=== PATIENT | female | born 1970 | race Caucasian/White ===

== ENCOUNTER → 2016-10-08 | Outpatient (CLI) | payer BC ==
[~2016-10-08] MED LIST: AMIT10TA6 PO; BUPR-79 PO; BUPR-83 PO; BUPR100T8 PO; BUPR200T2 PO; DICL50TA3 PO; FLUV1CAP; FLUV50TA2 PO; FRCT/ PO; LORA-741 PO; MULTTAB58 PO; RIBO100T2 PO; RIZA10TA18 PO; TOPI50TA24 PO; [UNRECOGNIZED DRUG - CODE]
[2016-10-08 12:36] LABS: ALT/SGPT 40 U/L (12-78); BLOOD UREA NITROGEN 15 mg/dl (7-18); BUN/CREATININE RATIO 13.5 (10-20); CALCIUM 8.9 mg/dl (8.5-10.1); CARBON DIOXIDE 24 mmol/L (21-32); CHLORIDE 110 mmol/L (98-107); CHOLESTEROL 193 mg/dl (0-200); GLUCOSE 94 mg/dl (70-99); POTASSIUM 4.6 mmol/L (3.5-5.1); SODIUM 142 mmol/L (136-145); TRIGLYCERIDES 140 mg/dl (0-150); VERY LOW DENSITY LIPOPROT CALC 28 mg/dl
[2016-10-08 12:46] LABS: ALB/GLOB RATIO 0.9 (0.9-2); ALKALINE PHOSPHATASE 69 U/L (45-117); AST/SGOT 19 U/L (15-37); CHOLESTEROL/HDL RATIO 4.3; HDL CHOLESTEROL 45 mg/dl; LDL CHOLESTEROL CALCULATED 120 mg/dl
== END | disposition home or self-care (01) ==
LOC: C.LABPVFM 08:14
PROVIDERS: ATTEND Family Medicine
DX: Z13.220 Encounter for screening for lipoid disorders (principal); Z13.29 Encounter for screening for other suspected endocrine disorder

== ENCOUNTER → 2016-11-05 | Outpatient (CLI) | payer BC ==
[~2016-11-05] VITALS: Ht 163.8 cm; Wt 95.7 kg
[~2016-11-05] MED LIST changes: +NORE-107; -[UNRECOGNIZED DRUG - CODE]
[2016-11-05 15:43] VITALS: BP 113/79; PULSE 109; Ht 163.8 cm; Wt 95.7 kg
== END | disposition home or self-care (01) ==
LOC: C.NEUR 15:27
PROVIDERS: ATTEND Internal Medicine Pulmonary Disease
DX: G47.30 Sleep apnea, unspecified (principal)

== ENCOUNTER → 2017-01-01 | Outpatient (CLI) | payer BC ==
[2017-01-01 17:28] LABS: BASO % 0.6 %; BASO ABS # 0.04 K/uL (0-0.2); COMPLETE YES; EOS % 2.7 %; HEMATOCRIT 43.3 % (37-47); IG% 0.3 %; LYMPH % 39.4 %; LYMPH ABS # 2.63 K/uL (1.2-3.4); MEAN CELL VOLUME 93.5 fL (80-100); MEAN CORPUSCULAR HEMOGLOBIN 29.8 pg (25-34); MEAN CORPUSCULAR HGB CONC 31.9 g/dl (32-36); MEAN PLATELET VOLUME 10.3 fL (7.4-10.4); MONO % 6.9 %; NEUT % 50.1 %; PLATELET COUNT 265 K/uL (130-400); RED BLOOD COUNT 4.63 M/uL (4.2-5.4); WHITE BLOOD COUNT 6.68 K/uL (4.8-10.8)
[2017-01-01 17:44] LABS: ALKALINE PHOSPHATASE 90 U/L (45-117); ALT/SGPT 34 U/L (12-78); AMYLASE 53 U/L (25-115); AST/SGOT 18 U/L (15-37); BLOOD UREA NITROGEN 13 mg/dl (7-18); BUN/CREATININE RATIO 11.8 (10-20); CALCIUM 8.5 mg/dl (8.5-10.1); CARBON DIOXIDE 26 mmol/L (21-32); CHLORIDE 109 mmol/L (98-107); GLUCOSE 129 mg/dl (70-99); POTASSIUM 3.8 mmol/L (3.5-5.1); SODIUM 143 mmol/L (136-145)
[2017-01-01 17:45] LABS: ALB/GLOB RATIO 0.9 (0.9-2)
== END | disposition home or self-care (01) ==
LOC: C.LABPVFM 13:31
PROVIDERS: ATTEND Nurse Practitioner Family
DX: R10.11 Right upper quadrant pain (principal)

== ENCOUNTER → 2017-01-04 | Outpatient (CLI) | payer BC ==
--- NOTE | 2017-01-04 08:58 | DIAGNOSTIC IMAGING REPORT ---
KUB CLINICAL HISTORY: Right upper quadrant abdominal pain COMPARISON STUDY: No previous studies for comparison. FINDINGS: There are surgical clips within the right upper quadrant consistent with a prior cholecystectomy. There is no pathologic bowel dilatation. There are no calcification suspicious for renal calculi. There are multiple nonspecific pelvic basin calcifications, likely representing phleboliths. IMPRESSION: No evidence of pathologic bowel dilatation. Electronically signed by: David Gibson M.D. 01/04/2017 8:55 AM Dictated Date/Time: 01/04/2017 8:54 AM
== END | disposition home or self-care (01) ==
LOC: C.RADPV 08:27
PROVIDERS: ATTEND Nurse Practitioner Family
DX: R10.811 Right upper quadrant abdominal tenderness (principal)

== ENCOUNTER 2017-01-06 09:07 | Emergency (ER) | payer BC ==
[~2017-01-06] VITALS: Ht 162.6 cm; Wt 95.8 kg
[~2017-01-06 09:07] MED LIST changes: -AMIT10TA6 PO; -BUPR-79 PO; -BUPR100T8 PO; -BUPR200T2 PO; -DICL50TA3 PO; -FLUV50TA2 PO; -RIBO100T2 PO
[2017-01-06 09:23] VITALS: TEMP 37; Ht 162.6 cm; Wt 95.8 kg
[2017-01-06] MEDS ORDERED: KETOROLAC TROMETHAMINE 30 MG/ML VIAL IV STA (09:49)
[2017-01-06] MEDS ORDERED: ONDANSETRON INJ 2 MG/ML 2 ML VIAL IV STA (09:49)
[2017-01-06 10:21] LABS: URINE APPEARANCE CLEAR (CLEAR); URINE BILIRUBIN NEG (NEG); URINE COLOR DK YELLOW; URINE EPITHELIAL CELL AUTO >30 /lpf (0-5); URINE NITRITE NEG (NEG); URINE PH 7.5 (4.5-7.5); URINE SPECIFIC GRAVITY 1.014 (1.000-1.030); UROBILINOGEN NEG (NEG)
[2017-01-06 10:24] LABS: BASO % 0.7 %; BASO ABS # 0.04 K/uL (0-0.2); COMPLETE YES; EOS % 3.4 %; HEMATOCRIT 41.6 % (37-47); IG% 0.2 %; LYMPH % 32.7 %; LYMPH ABS # 1.81 K/uL (1.2-3.4); MEAN CELL VOLUME 92.4 fL (80-100); MEAN CORPUSCULAR HEMOGLOBIN 30.2 pg (25-34); MEAN CORPUSCULAR HGB CONC 32.7 g/dl (32-36); MEAN PLATELET VOLUME 9.9 fL (7.4-10.4); MONO % 8.1 %; NEUT % 54.9 %; PLATELET COUNT 225 K/uL (130-400); WHITE BLOOD COUNT 5.53 K/uL (4.8-10.8)
[2017-01-06 10:25] LABS: MANUAL MICROSCOPIC REQUIRED? NO; REVIEW REQ? NO
[2017-01-06 10:42] LABS: ALT/SGPT 33 U/L (12-78); AST/SGOT 14 U/L (15-37); BLOOD UREA NITROGEN 13 mg/dl (7-18); BUN/CREATININE RATIO 13.1 (10-20); CALCIUM 8.6 mg/dl (8.5-10.1); CARBON DIOXIDE 24 mmol/L (21-32); CHLORIDE 110 mmol/L (98-107); GLUCOSE 124 mg/dl (70-99); POTASSIUM 3.9 mmol/L (3.5-5.1); SODIUM 141 mmol/L (136-145)
[2017-01-06 10:47] LABS: ALB/GLOB RATIO 0.9 (0.9-2); ALKALINE PHOSPHATASE 78 U/L (45-117)
[2017-01-06] MEDS ORDERED: DICL50TA3 PO (11:16)
[2017-01-06] MEDS ORDERED: AMIT10TA6 PO (11:16)
[2017-01-06] MEDS ORDERED: RIBO100T2 PO (11:16)
[2017-01-06] MEDS ORDERED: FLUV50TA2 PO (11:16)
[2017-01-06] MEDS ORDERED: BUPR100T8 PO (11:16)
[2017-01-06] MEDS ORDERED: BUPR-79 PO (11:16)
[2017-01-06] MEDS ORDERED: BUPR200T2 PO (11:16)
--- NOTE | 2017-01-06 11:20 | DIAGNOSTIC IMAGING REPORT ---
PA CHEST WITH ABDOMINAL SERIES CLINICAL HISTORY: Right upper quadrant abdominal pain. FINDINGS: A PA chest radiograph is compared to study dated 10/08/2015. The cardiomediastinal silhouette is unremarkable. There are low lung volumes. The lungs and pleural spaces are clear. No pneumothorax is seen. The bony thorax is grossly intact. Supine and erect abdominal radiographs are compared to study dated 01/04/2017. There is a nonobstructed abdominal bowel gas pattern. Moderate colonic fecal retention is observed. No evidence of intraperitoneal free air is seen. Cholecystectomy clips are identified in the right upper quadrant. There are no abnormal abdominal calcifications. Numerous phleboliths are observed in the pelvis. The lumbosacral spine and bony pelvis appear intact. IMPRESSION: 1. Low lung volumes with no active disease in the chest. 2. Moderate constipation. Electronically signed by: Josh Wilkerson M.D. 01/06/2017 11:18 AM Dictated Date/Time: 01/06/2017 11:16 AM
[2017-01-06] MEDS ORDERED: OPTIRAY 320 IV PRN (11:45)
--- NOTE | 2017-01-06 12:58 | DIAGNOSTIC IMAGING REPORT ---
CT OF THE ABDOMEN AND PELVIS WITH CONTRAST CLINICAL HISTORY: Right upper quadrant abdominal pain. COMPARISON STUDY: Abdominal series performed earlier today. TECHNIQUE: Following IV administration of 93 mL of Optiray-320, axial images of the abdomen and pelvis were obtained from the lung bases to the proximal femurs. Images were reviewed in the axial, sagittal, and coronal planes. IV contrast was administered without complication. CT DOSE: 1039.46 mGycm FINDINGS: The liver, spleen, adrenal glands, kidneys and pancreas are unremarkable. There is no biliary ductal dilatation status post cholecystectomy. There is no peripancreatic infiltration. There is no hydronephrosis. Minimal hyperdense material within the bilateral collecting systems likely reflects excreted contrast. The caliber and wall thickness of small and large bowel are normal. The appendix is normal. There is no lymphadenopathy or ascites. No suspicious skeletal lesions are identified. IMPRESSION: No acute process within the abdomen or pelvis. Electronically signed by: Aarm Gasca M.D. 01/06/2017 12:55 PM Dictated Date/Time: 01/06/2017 12:48 PM
--- NOTE | 2017-01-06 13:27 | EMERGENCY ROOM VISIT NOTE ---
History First contact with patient: 09:25 Chief Complaint: BACK PAIN Stated Complaint: PAIN IN R SIDE RADIATES TO BACK AND DOWN History of Present Illness Patient is a 46-year-old white female who presents to the emergency department for right upper quadrant pain 3 weeks. The pain has been intermittent, but was tolerable and initially. She states that when the pain started she had had a cold and initially thought that it was muscular. It worsened about 5 days ago which prompted her to go to her PCPs office. She had a KUB x-ray, CBC, CMP and a stool for H. pylori which were all negative. The pain is in the right upper quadrant up underneath her right rib cage. She states that over the last 5 days the pain has worsened, become more constant and wraps around to her back into her right lower quadrant. Today the pain was very severe and made her nauseous. She was supposed to have a follow-up later this morning, but could not wait due to the increased pain. She reports some nausea today, but has not been nauseous previously and there has been no vomiting. She describes a "hollow, sick feeling" in her stomach. She has been eating normally. She denies any diarrhea or stool changes, no melena or hematochezia. She denies any dysuria, frequency or urgency or hematuria. She denies a chest pain or palpitations, but does note that it hurts worse when she takes a deep breath or when she coughs. She has not been coughing or bringing up any mucus or sputum and she does not feel short of breath. She has not had any fevers. She has not taken any medications for her symptoms. She does state that her pain now feel similar to when she had her gallbladder issues in the mid 90s. She presently rates her discomfort a 5/10. She is on an oral contraceptive and has a history of PCOS. She notes some right lower extremity swelling in the morning , but denies any pain. No other DVT or PE risk factors. Review of Systems Review of systems as per HPI. All other systems reviewed were negative. 10 systems reviewed. Past Medical/Surgical History Medical Problems: (1) Esophageal Reflux (2) Migraine (3) Migraine (4) Mixed Hyperlipidemia Surgical Problems: (1) Hx of cholecystectomy (2) Tubal Ligation Status Electronic medical records are reviewed and summarized as above/below. See Problem List. Social History Smoking Status: Never Smoker Marital Status: Housing Status: lives with significant other Occupation Status: employed Current/Historical Medications Scheduled Amitriptyline Hcl (Elavil), 20 MG PO HS Bupropion (Wellbutrin Sr), 100 MG PO QAM Bupropion (Wellbutrin Sr), 150 MG PO QAM Bupropion Hcl (Wellbutrin Sr), 200 MG PO QPM Fluvoxamine Maleate (Luvox), 50 MG PO HS Multiple Vitamin (Multivitamin), 1 TAB PO DAILY Norethin Acet & Estrad-Fe (Microgestin Fe), 1 TAB DAILY Riboflavin (B2), 400 MG PO DAILY Topiramate (Topamax), 50 MG PO BID Scheduled PRN Lorazepam (Ativan), 0.5 MG PO Q6H PRN Miscellaneous Medications Diclofenac (Voltaren), 50 MG PO Allergies Coded Allergies: Propranolol (Unverified Allergy, Severe, "I FELT HIGH", 01/06/17) Sulfa Antibiotics (Unverified Allergy, Severe, ., 01/06/17) Neomycin (Unverified Allergy, Unknown, 03/01/13) Physical Exam Vital Signs Date Time Temp Pulse Resp B/P Pulse Ox O2 Delivery O2 Flow Rate FiO2 01/06/17 13:51 93 16 134/84 97 01/06/17 13:05 92 16 98 Room Air 01/06/17 11:26 97 16 103/79 97 Room Air 01/06/17 10:28 95 01/06/17 09:23 37.0 110 18 132/97 97 Room Air Physical Exam CONSTITUTIONAL: Patient is a well-appearing 46-year-old white female who is awake and alert and in mild distress due to her discomfort. EYES: Pupils equal, round, reactive to light and accommodation. EOMs intact without nystagmus. Sclera are anicteric. ENT: Tympanic membranes intact, with normal landmarks. External canals are clear. Oral and nasopharynx are clear. Mucous membranes are moist, no lesions , tongue and gums appear normal. NECK: No bruits auscultated. Supple without lymphadenopathy. No thyromegaly. No meningeal signs. Full active range of motion without discomfort. CARDIOVASCULAR: Regular rate and rhythm, with normal S1 and S2, no murmur or gallop or rub is heard. No carotid bruits auscultated. No JVD. Peripheral pulses easy to palpable. RESPIRATORY: Breath sounds equal and clear to auscultation without wheezes, rales, or rhonchi heard. Full and equal chest expansion without accessory muscle use or retractions. GI: Bowel sounds are present. Well-healed surgical scars are noted. Abdomen is soft, nondistended, tender in the right upper quadrant just off of the costal margin. She does also have some discomfort over the inferior rib cage as well. No organomegaly. No pulsatile masses. No guarding or rebound. MUSCULOSKELETAL: Full range of motion of extremities x 4 with good strength. No cyanosis, edema, joint tenderness or swelling. No deformity. INTEGUMENTARY: No lesions or rash, normal skin turgor. NEUROLOGICAL: Alert, oriented, and cooperative. Cranial nerves, sensation and strength grossly intact. Pupils round, equal, and react to light, EOMs are full. LYMPH: No lymphadenopathy. Medical Decision & Procedures ER Provider Diagnostic Interpretation: CT OF THE ABDOMEN AND PELVIS WITH CONTRAST CLINICAL HISTORY: Right upper quadrant abdominal pain. COMPARISON STUDY: Abdominal series performed earlier today. TECHNIQUE: Following IV administration of 93 mL of Optiray-320, axial images of the abdomen and pelvis were obtained from the lung bases to the proximal femurs. Images were reviewed in the axial, sagittal, and coronal planes. IV contrast was administered without complication. CT DOSE: 1039.46 mGycm FINDINGS: The liver, spleen, adrenal glands, kidneys and pancreas are unremarkable. There is no biliary ductal dilatation status post cholecystectomy. There is no peripancreatic infiltration. There is no hydronephrosis. Minimal hyperdense material within the bilateral collecting systems likely reflects excreted contrast. The caliber and wall thickness of small and large bowel are normal. The appendix is normal. There is no lymphadenopathy or ascites. No suspicious skeletal lesions are identified. IMPRESSION: No acute process within the abdomen or pelvis. Laboratory Results 01/06/17 10:02 Red Blood Count 4.50, Mean Corpuscular Volume 92.4, Mean Corpuscular Hemoglobin 30.2, Mean Corpuscular Hemoglobin Concent 32.7, Mean Platelet Volume 9.9, Neutrophils (%) (Auto) 54.9, Lymphocytes (%) (Auto) 32.7, Monocytes (%) (Auto) 8.1, Eosinophils (%) (Auto) 3.4, Basophils (%) (Auto) 0.7, Neutrophils # (Auto) 3.03, Lymphocytes # (Auto) 1.81, Monocytes # (Auto) 0.45, Eosinophils # (Auto) 0.19, Basophils # (Auto) 0.04 01/06/17 10:02 Test 01/06/17 10:00 01/06/17 10:02 01/06/17 10:09 Urine Color DK YELLOW Urine Appearance CLEAR (CLEAR) Urine pH 7.5 (4.5-7.5) Urine Specific [place] 1.014 (1.000-1.030) Urine Protein NEG (NEG) Urine Glucose (UA) NEG (NEG) Urine Ketones NEG (NEG) Urine Occult Blood NEG (NEG) Urine Nitrite NEG (NEG) Urine Bilirubin NEG (NEG) Urine Urobilinogen NEG (NEG) Urine Leukocyte Esterase MODERATE (NEG) Urine WBC (Auto) 1-5 /hpf (0-5) Urine RBC (Auto) 5-10 /hpf (0-4) Urine Hyaline Casts (Auto) 0 /lpf (0-5) Urine Epithelial Cells (Auto) >30 /lpf (0-5) Urine Bacteria (Auto) NEG (NEG) Urine Test NEG (NEG) White Blood Count 5.53 K/uL (4.8-10.8) Red Blood Count 4.50 M/uL (4.2-5.4) Hemoglobin 13.6 g/dL (12.0-16.0) Hematocrit 41.6 % (37-47) Mean Corpuscular Volume 92.4 fL (80-100) Mean Corpuscular Hemoglobin 30.2 pg (25-34) Mean Corpuscular Hemoglobin Concent 32.7 g/dl (32-36) Platelet Count 225 K/uL (130-400) Mean Platelet Volume 9.9 fL (7.4-10.4) Neutrophils (%) (Auto) 54.9 % Lymphocytes (%) (Auto) 32.7 % Monocytes (%) (Auto) 8.1 % Eosinophils (%) (Auto) 3.4 % Basophils (%) (Auto) 0.7 % Neutrophils # (Auto) 3.03 K/uL (1.4-6.5) Lymphocytes # (Auto) 1.81 K/uL (1.2-3.4) Monocytes # (Auto) 0.45 K/uL (0.11-0.59) Eosinophils # (Auto) 0.19 K/uL (0-0.5) Basophils # (Auto) 0.04 K/uL (0-0.2) RDW Standard Deviation 44.2 fL (36.4-46.3) RDW Coefficient of Variation 13.1 % (11.5-14.5) Immature Granulocyte % (Auto) 0.2 % Immature Granulocyte # (Auto) 0.01 K/uL (0.00-0.02) Anion Gap 7.0 mmol/L (3-11) Est Creatinine Clear Calc Drug Dose 78.1 ml/min Estimated GFR () 77.7 Estimated GFR (Non- 67.0 BUN/Creatinine Ratio 13.1 (10-20) Calcium Level 8.6 mg/dl (8.5-10.1) Total Bilirubin 0.5 mg/dl (0.2-1) Aspartate Amino Transf (AST/SGOT) 14 U/L (15-37) Alanine Aminotransferase (ALT/SGPT) 33 U/L (12-78) Alkaline Phosphatase 78 U/L (45-117) Troponin I < 0.015 ng/ml (0-0.045) Total Protein 7.4 gm/dl (6.4-8.2) Albumin 3.6 gm/dl (3.4-5.0) Globulin 3.8 gm/dl (2.5-4.0) Albumin/Globulin Ratio 0.9 (0.9-2) Lipase 240 U/L (73-393) Bedside D-Dimer 445 ng/mlFEU (0-450) Medications Administered Medications (Trade) Dose Ordered Sig/Donte Route Start Time Stop Time Status Last Admin Dose Admin Ketorolac Tromethamine (Toradol Inj) 30 mg NOW STAT IV 01/06/17 09:49 01/06/17 09:51 DC 01/06/17 10:33 30 MG Ondansetron HCl (Zofran Inj) 4 mg NOW STAT IV 01/06/17 09:49 01/06/17 09:51 DC 01/06/17 10:33 4 MG ECG Indication: abdominal pain Rate (beats per minute): 96 Rhythm: normal sinus Findings: no acute ischemic change Change: no significant change ED Course The patient was seen and assessed as above. Old records were reviewed, including her recent outpatient laboratory studies and diagnostic imaging. IV access was obtained and she was hydrated with normal saline solution. She had driven herself to the emergency department and therefore was medicated with Toradol 30 mg IV and Zofran 4 mg IV. She states on correctional cook and EKG was performed and was as noted above. CBC with differential, CMP, lipase, troponin and [id number] d-dimer were performed. Urinalysis and urine test were also collected. Patient's laboratory studies demonstrated a normal white count. No left shift or bandemia. H&H is normal. Electrolytes are without gross abnormality. Liver functions are not elevated. Lipase is not indicative of acute pancreatitis. Troponin is negative 1. D-dimer was performed and was within normal limits. Based on the negative d-dimer and low risk for PE, further imaging for PE was not performed. Urine test was negative and urinalysis noted moderate leukocyte esterase, 5-10 RBCs and greater than 30 epithelial cells. Urine was felt to indicate contamination was not overly infectious process. Acute abdominal series was performed, which noted moderate constipation. Nonobstructive bowel gas pattern was noted. There is no evidence for free air. Chest was clear. Abdominal CT scan did not demonstrate any acute process. All laboratory and diagnostic imaging studies were reviewed with the patient. Differential diagnoses entertained included GERD, gastritis, esophagitis, peptic ulcer disease, pancreatitis, choledocholithiasis, PE, ACS, bowel obstruction, perforation, intercostal neuritis, shingles, ovarian cyst, ovarian torsion, mass or malignancy, among others. Conservative care measures were reviewed with the patient. She was encouraged to have close follow-up with her primary care provider for further care and management. Patient expressed understanding of this and was agreeable and rated her pain a 1/10 at discharge. Medical Decision See ED Course. Impression Primary Impression: Right upper quadrant abdominal pain Departure Information Referrals Alejandro Kohli M.D. (PCP) Patient Instructions My [facility] Additional Instructions Ibuprofen(Motrin, Advil) may be used for fever or pain. Use 600mg every six hours as needed. Take with food. Avoid using more than 2400mg in a 24 hour period. Do not use 2400mg per day for more than three consecutive days without physician direction. Prolonged inappropriate use can lead to stomach upset or ulcers. This is available over the counter and typically comes in 200mg tablets. (AND/OR) Acetaminophen(Tylenol) may be used for fever or pain. Use 1000mg every eight hours as needed. Avoid using more than 3000mg in a 24 hour period. This is available over the counter. Rest and drink plenty of fluids as tolerated. Slow sips of water or sports drinks are recommended instead of large amounts all at once. Continue current medications. Diet as tolerated. Return to the ER immediately for worsening or persistent abdominal pain, vomiting, fevers, chest pains, difficulty breathing, black or bloody stools, worsening of your condition, or as needed. Follow up with your primary physician in 1-2 days for a recheck of your current condition.
[2017-01-06 13:51] VITALS: BP 134/84; PULSE 93; O2SAT 97
== END 2017-01-06 13:53 | disposition home or self-care (01) ==
LOC: C.EDB 09:08
DX: R10.11 Right upper quadrant pain (principal); K21.9 Gastro-esophageal reflux disease without esophagitis; G43.909 Migraine, unspecified, not intractable, without status migrainosus; E78.2 Mixed hyperlipidemia; Z79.899 Other long term (current) drug therapy

== ENCOUNTER → 2017-04-19 | Outpatient (CLI) | payer BC ==
[~2017-04-19] MED LIST changes: +AMIT10TA6 PO; +BUPR-79 PO; -BUPR-83 PO; +BUPR100T8 PO; +BUPR200T2 PO; +DICL50TA3 PO; -FLUV1CAP; +FLUV50TA2 PO; -FRCT/ PO; -NORE-107; +RIBO100T2 PO; -RIZA10TA18 PO; +[UNRECOGNIZED DRUG - CODE]
[2017-04-19 13:10] LABS: ALT/SGPT 27 U/L (12-78); AST/SGOT 15 U/L (15-37); BLOOD UREA NITROGEN 13 mg/dl (7-18); BUN/CREATININE RATIO 11.6 (10-20); CALCIUM 8.5 mg/dl (8.5-10.1); CARBON DIOXIDE 24 mmol/L (21-32); CHLORIDE 111 mmol/L (98-107); GLUCOSE 89 mg/dl (70-99); POTASSIUM 3.9 mmol/L (3.5-5.1); SODIUM 142 mmol/L (136-145)
[2017-04-19 13:13] LABS: ALB/GLOB RATIO 0.9 (0.9-2); ALKALINE PHOSPHATASE 59 U/L (45-117); CHOLESTEROL 171 mg/dl (0-200); CHOLESTEROL/HDL RATIO 4.4; HDL CHOLESTEROL 39 mg/dl; LDL CHOLESTEROL CALCULATED 94 mg/dl; TRIGLYCERIDES 188 mg/dl (0-150); VERY LOW DENSITY LIPOPROT CALC 38 mg/dl
== END | disposition home or self-care (01) ==
LOC: C.LABPVFM 08:02
PROVIDERS: ATTEND Family Medicine
DX: Z13.220 Encounter for screening for lipoid disorders (principal); Z51.81 Encounter for therapeutic drug level monitoring; Z79.899 Other long term (current) drug therapy

== ENCOUNTER → 2017-06-14 | Outpatient (CLI) | payer BC | END | disposition home or self-care (01) | LOC: C.PAPS 11:58 | PROVIDERS: ATTEND Obstetrics & Gynecology | DX: Z12.4 Encounter for screening for malignant neoplasm of cervix (principal) ==

== ENCOUNTER → 2017-07-12 | Outpatient (CLI) | payer BC ==
[~2017-07-12] MED LIST changes: +NORE-107; -[UNRECOGNIZED DRUG - CODE]
[2017-07-12 18:38] LABS: BASO % 0.4 %; BASO ABS # 0.03 K/uL (0-0.2); COMPLETE YES; EOS % 2.9 %; HEMATOCRIT 45.9 % (37-47); IG% 0.4 %; LYMPH % 37.6 %; LYMPH ABS # 2.55 K/uL (1.2-3.4); MEAN CELL VOLUME 93.9 fL (80-100); MEAN CORPUSCULAR HEMOGLOBIN 29.4 pg (25-34); MEAN CORPUSCULAR HGB CONC 31.4 g/dl (32-36); MEAN PLATELET VOLUME 10.5 fL (7.4-10.4); MONO % 8.2 %; NEUT % 50.5 %; PLATELET COUNT 279 K/uL (130-400); RED BLOOD COUNT 4.89 M/uL (4.2-5.4); WHITE BLOOD COUNT 6.79 K/uL (4.8-10.8)
[2017-07-12 19:15] LABS: LYME DISEASE AB IGG NEG (NEG)
[2017-07-12 20:01] LABS: LYME DISEASE AB IGM NEG (NEG)
== END | disposition home or self-care (01) ==
LOC: C.LABPVFM 12:14
PROVIDERS: ATTEND Family Medicine
DX: L21.9 Seborrheic dermatitis, unspecified (principal); L65.9 Nonscarring hair loss, unspecified; R21 Rash and other nonspecific skin eruption

== ENCOUNTER → 2017-08-26 | Outpatient (CLI) | payer BC ==
--- NOTE | 2017-08-27 12:56 | MAMMOGRAPHY REPORT ---
BILATERAL FIRST EVER DIGITAL SCREENING MAMMOGRAM TOMOSYNTHESIS WITH CAD: 08/26/2017 TECHNIQUE: Breast tomosynthesis in addition to standard 2D mammography was performed. Current study was also evaluated with a Computer Aided Detection (CAD) system. COMPARISON: No prior exams were available for comparison. BREAST COMPOSITION: There are scattered areas of fibroglandular density in both breasts. FINDINGS: No suspicious masses, calcifications, or areas of architectural distortion are noted in ei ther breast. A few scattered benign-appearing calcifications are noted bilaterally. IMPRESSION: ACR BI-RADS CATEGORY 2: BENIGN There is no mammographic evidence of malignancy. A 1 year screening mammogram is recommended. The pa tient will receive written notification of the results. Approximately 10% of breast cancers are not detected with mammography. A negative mammographic report should not delay biopsy if a clinically suggestive mass is present. Laura Lester M.D. /:08/26/2017 14:59:44 [employer] Engineer: Emily SHERMAN(Libby)(Janette), [facility] letter sent: Normal 1/2 BI-RADS Code: ACR BI-RADS Category 2: Benign
== END | disposition home or self-care (01) ==
LOC: C.MAMM 12:57
PROVIDERS: ATTEND Obstetrics & Gynecology
DX: Z12.31 Encounter for screening mammogram for malignant neoplasm of breast (principal)

== ENCOUNTER → 2017-11-09 | Outpatient (CLI) | payer BC ==
[~2017-11-09] VITALS: Ht 163.8 cm; Wt 101.1 kg
[2017-11-09 15:42] VITALS: BP 145/93; PULSE 114; Ht 163.8 cm; Wt 101.1 kg
[2017-11-09 15:43] VITALS: BP 150/91; PULSE 109
== END | disposition home or self-care (01) ==
LOC: C.NEUR 15:21
PROVIDERS: ATTEND Internal Medicine Pulmonary Disease
DX: G47.30 Sleep apnea, unspecified (principal); G43.909 Migraine, unspecified, not intractable, without status migrainosus; R53.83 Other fatigue; K21.9 Gastro-esophageal reflux disease without esophagitis; F41.9 Anxiety disorder, unspecified; F32.9 Major depressive disorder, single episode, unspecified; R63.5 Abnormal weight gain

== ENCOUNTER → 2017-11-26 | Outpatient (CLI) | payer BC ==
--- NOTE | 2017-11-26 09:28 | DIAGNOSTIC IMAGING REPORT ---
R SHOULDER MIN 2 VIEWS ROUTINE CLINICAL HISTORY: Right shoulder pain. Strain. COMPARISON: None FINDINGS: Alignment of the right shoulder is anatomic. There is moderate osteoarthritis of the right acromioclavicular joint. There is minimal osteoarthritis of the right glenohumeral joint. There is no fracture or suspicious lesion. A 5 mm calcific density adjacent to the greater tuberosity suggest calcific tendinitis. IMPRESSION: 1. Findings suggestive of calcific tendinitis of the right rotator cuff. 2. Moderate osteoarthritis of the right acromioclavicular joint. Electronically signed by: Aram Gasca M.D. 11/26/2017 9:27 AM Dictated Date/Time: 11/26/2017 9:20 AM
== END | disposition home or self-care (01) ==
LOC: C.RADPV 09:09
PROVIDERS: ATTEND Family Medicine
DX: S46.911A Strain of unspecified muscle, fascia and tendon at shoulder and upper arm level, right arm, initial encounter (principal); X58.XXXA Exposure to other specified factors, initial encounter

== ENCOUNTER → 2017-12-17 | Outpatient (CLI) | payer BC | END | disposition home or self-care (01) | LOC: C.RDSM 15:26 | PROVIDERS: ATTEND Orthopaedic Surgery | DX: M25.511 Pain in right shoulder (principal) ==